=== PATIENT | male | born 1995 | race Caucasian/White ===

== ENCOUNTER 2022-08-17 23:13 | Emergency (ER) | payer OTHER ==
[2022-08-17] MEDS ORDERED: Sodium Chloride 0.9% 10 ML Syringe FLUSH PRN ×2 (23:33→23:38)
[2022-08-18 00:06] LABS: BASOPHILS ABSOLUTE AUTO 0.03 K/mm3 (0.01-0.08); BASOPHILS PERCENT AUTO 0.4 % (0.1-1.2); EOSINOPHILS ABSOLUTE AUTO 0.31 K/mm3 (0.04-0.54); EOSINOPHILS PERCENT AUTO 3.8 (0.8-7.0); HEMATOCRIT 47.9 % (40.1-51.0); HEMOGLOBIN 16.4 gm/dl (13.7-17.5); IMMATURE GRAN ABSOLUTE AUTO 0.04 K/mm3 (0.00-0.10); IMMATURE GRAN PERCENT AUTO 0.5 % (<=1.0); LYMPHOCYTES PERCENT AUTO 27.1 % (21.8-53.1); MEAN CORPUSCULAR HEMOGLOBIN 28.9 pg (25.7-32.2); MEAN CORPUSCULAR HGB CONC 34.2 g/dl (32.2-35.5); MEAN CORPUSCULAR VOLUME 84.3 fl (79.0-92.2); MEAN PLATELET VOLUME 8.5 fl (9.4-12.3); MONOCYTES PERCENT AUTO 11.1 % (5.3-12.2); NEUTROPHILS ABSOLUTE AUTO 4.63 K/mm3 (1.78-5.38); NEUTROPHILS PERCENT AUTO 57.1 % (34.0-67.9); PLATELET COUNT,PLT 308 K/mm3 (163-337); RED BLOOD CELL COUNT 5.68 M/mm3 (4.63-6.08); WHITE BLOOD CELL COUNT,WBC 8.11 K/mm3 (4.23-9.07)
[2022-08-18 00:36] LABS: A/G RATIO 1.1 (1-2); ALANINE AMINOTRANSFERASE,ALT 137 U/L (16-63); ALBUMIN 3.8 g/dl (3.4-5.0); ALKALINE PHOSPHATASE 89 U/L (46-116); ANION GAP 12.6 (5-15); ASPARTATE AMNIOTRANSFERASE,AST 47 U/L (15-37); BILIRUBIN TOTAL 0.4 mg/dL (0.2-1.0); BLOOD UREA NITROGEN,BUN 8 mg/dL (7-18); BUN/CREATININE RATIO 7.3 (14-18); CALCIUM 9.1 mg/dL (8.5-10.1); CARBON DIOXIDE,CO2 26 mEq/L (21-32); CHLORIDE,CL 105 mEq/L (98-107); CREATININE 1.1 mg/dL (0.7-1.3); ESTIMATED GFR 96 mL/min (>60); GLUCOSE RANDOM 116 mg/dL (70-99); POTASSIUM,K 3.6 mEq/L (3.5-5.1); PROTEIN TOTAL,TP 7.2 g/dl (6.4-8.2); SODIUM,NA 140 mEq/L (136-145); TSH 2.373 uIU/mL (0.358-3.74)
[2022-08-18 00:38] LABS: CKMB < 0.5 ng/ml (0-3.6); TROPONIN I HIGH SENSITIVITY < 4 pg/mL (<=76)
[2022-08-18] MEDS ORDERED: Aspirin 81 MG Tab.Chew PO ONE (00:59)
== END 2022-08-18 03:08 | disposition home or self-care (01) ==
LOC: JD.ED 23:13
DX: R07.89 Other chest pain (principal)
CPT/HCPCS: 36415; 71045; 71045-26; 80053; 82553; 83735; 84443; 84484; 85025; 85379; 93010; 99283; 99285

== ENCOUNTER 2022-08-21 22:44 | Emergency (ER) | payer OTHER ==
[2022-08-21] MEDS ORDERED: Sodium Chloride 0.9% 10 ML Syringe FLUSH PRN (23:08)
[2022-08-21] MEDS ORDERED: Aspirin 81 MG Tab.Chew PO ONE (23:09)
[2022-08-21 23:47] LABS: BASOPHILS ABSOLUTE AUTO 0.04 K/mm3 (0.01-0.08); BASOPHILS PERCENT AUTO 0.4 % (0.1-1.2); EOSINOPHILS ABSOLUTE AUTO 0.23 K/mm3 (0.04-0.54); EOSINOPHILS PERCENT AUTO 2.4 (0.8-7.0); HEMOGLOBIN 16.4 gm/dl (13.7-17.5); IMMATURE GRAN ABSOLUTE AUTO 0.08 K/mm3 (0.00-0.10); IMMATURE GRAN PERCENT AUTO 0.8 % (<=1.0); LYMPHOCYTES ABSOLUTE AUTO 2.53 K/mm3 (1.32-3.57); LYMPHOCYTES PERCENT AUTO 26.1 % (21.8-53.1); MEAN CORPUSCULAR HEMOGLOBIN 28.8 pg (25.7-32.2); MEAN CORPUSCULAR HGB CONC 34.2 g/dl (32.2-35.5); MEAN CORPUSCULAR VOLUME 84.2 fl (79.0-92.2); MEAN PLATELET VOLUME 8.5 fl (9.4-12.3); MONOCYTES ABSOLUTE AUTO 1.27 K/mm3 (0.30-0.82); MONOCYTES PERCENT AUTO 13.1 % (5.3-12.2); NEUTROPHILS ABSOLUTE AUTO 5.54 K/mm3 (1.78-5.38); NEUTROPHILS PERCENT AUTO 57.2 % (34.0-67.9); PLATELET COUNT,PLT 268 K/mm3 (163-337); WHITE BLOOD CELL COUNT,WBC 9.69 K/mm3 (4.23-9.07)
[2022-08-22 00:26] LABS: A/G RATIO 1.3 (1-2); ALBUMIN 4.2 g/dl (3.4-5.0); BILIRUBIN TOTAL 0.7 mg/dL (0.2-1.0); BUN/CREATININE RATIO 11.7 (14-18); CALCIUM 8.9 mg/dL (8.5-10.1); CREATININE 1.2 mg/dL (0.7-1.3); EST CRCL DRUG DOSING (CG) 100.23 mL/min; MAGNESIUM 2.3 mg/dL (1.8-2.4); PROTEIN TOTAL,TP 7.5 g/dl (6.4-8.2); TSH 1.988 uIU/mL (0.358-3.74)
== END 2022-08-22 01:44 | disposition left against medical advice (07) ==
LOC: JD.ED 22:44
DX: R07.89 Other chest pain (principal); E66.9 Obesity, unspecified; Z68.30 Body mass index [BMI] 30.0-30.9, adult; Z86.16 Personal history of COVID-19
CPT/HCPCS: 36415; 71045; 80053; 83735; 84443; 84484; 85025; 85379; 93005; 99285; A9270; 93010; 99283